=== PATIENT | female | born 1990 | race Caucasian/White ===

== ENCOUNTER 2018-04-23 08:51 | Emergency (ER) | payer OTHER ==
[~2018-04-23] VITALS: Ht 157.5 cm; Wt 82.0 kg
[~2018-04-23 08:51] MED LIST: CAMILA0.35 MG PO; Concerta PO; IBUPROFEN800 MG PO; MOTRIN800 MG PO; Motrin PO; PERCOCET 5/31 TABLET PO; PRENATAL TABLE1 EAC3 PO; Percocet 5/325,Endoc PO; ZOFRAN4 MG PO; celeXA PO
[2018-04-23] MEDS ORDERED: PREDNISONE20 MG PO (09:27)
[2018-04-23] MEDS ORDERED: ATARAX,VISTARIL25 MG PO (09:35)
[2018-04-23 09:44] VITALS: BP 108/76
[2018-04-24] MEDS ORDERED: LATUDA40 MG PO (02:25)
[2018-04-24] MEDS ORDERED: MEDROL DOSEPAK4 MG PO (10:43)
[2018-04-24] MEDS ORDERED: PEPCID20 MG PO (10:44)
[2018-04-24] MEDS ORDERED: BENADRYL25 MG PO (10:44)
== END 2018-04-23 09:45 | disposition home or self-care (01) ==
LOC: EME 08:51
DX: L50.9 Urticaria, unspecified (principal); F32.9 Major depressive disorder, single episode, unspecified; F41.9 Anxiety disorder, unspecified; J45.909 Unspecified asthma, uncomplicated; F17.200 Nicotine dependence, unspecified, uncomplicated
CPT/HCPCS: 99281; 99284; J7512; Q0177

== ENCOUNTER 2018-04-23 22:50 | Observation (INO) | payer OTHER ==
[~2018-04-23] VITALS: Ht 157.5 cm; Wt 83.5 kg
[~2018-04-23 22:50] MED LIST changes: +ATARAX,VISTARIL25 MG PO; +PREDNISONE20 MG PO
[2018-04-24] MEDS ORDERED: LATUDA40 MG PO (02:25)
[2018-04-24 05:24] VITALS: BP 114/73
[2018-04-24 07:53] VITALS: BP 109/67
[2018-04-24 08:57] LABS: BASOPHIL (%) 0.1 % (0-1); EOSINOPHIL (%) 0 % (0-5); HEMATOCRIT 38.3 % (36.0-46.0); HEMOGLOBIN 12.6 G/DL (11.9-15.5); IMMATURE GRANULOCYTE (%) 0.6 % (0.0-0.7); LYMPHOCYTE (%) 8.2 % (15-42); LYMPHOCYTE COUNT 0.9 K/uL (1.0-2.8); MCH 28.5 PG (29.0-34.0); MCHC 32.9 G/DL (30.0-36.0); MCV 86.7 FL (83-99); MONOCYTE (%) 2.8 % (3-12); MONOCYTE COUNT 0.3 K/uL (0-0.8); NEUTROPHIL (%) 88.3 % (45-76); NEUTROPHIL COUNT 10.2 K/uL (1.8-6.4); PLATELET COUNT 253 K/uL (156-360); RBC DIS.WIDTH-CV 12.3 % (11.8-14.6); RBC DIS.WIDTH-SD 39.1 % (39-53); RED BLOOD COUNT 4.42 M/uL (3.80-5.20); WHITE BLOOD COUNT 11.5 K/uL (4.1-10.2)
[2018-04-24 09:23] LABS: CHLORIDE 109 MEQ/L (99-109); CREATININE 0.6 MG/DL (0.6-1.3); GFR ESTIMATE (CALCULATED) > 59 mL/min/; GLUCOSE 139 mg/dL (70-99); POTASSIUM 4.2 MEQ/L (3.7-5.4); SODIUM 141 MEQ/L (136-147); UREA NITROGEN (BUN) 8 mg/dL (9-23)
[2018-04-24] MEDS ORDERED: MEDROL DOSEPAK4 MG PO (10:43)
[2018-04-24] MEDS ORDERED: PEPCID20 MG PO (10:44)
[2018-04-24] MEDS ORDERED: BENADRYL25 MG PO (10:44)
[2018-04-24 11:27] VITALS: BP 116/59
== END 2018-04-24 13:30 | disposition home or self-care (01) ==
LOC: EME 22:50 → ENPENDDIS 04-24 → EDOF 04-24 04:13 → 4SOUTH 04-24 04:13 → ENRESERV 04-24 04:15 → 4SOUTH 04-24 05:15
PROVIDERS: Internal Medicine
DX: T78.3XXA Angioneurotic edema, initial encounter (principal); Z86.11 Personal history of tuberculosis; J45.909 Unspecified asthma, uncomplicated; F17.210 Nicotine dependence, cigarettes, uncomplicated
CPT/HCPCS: 71045; 80048; 85025; 99281; 99285; G0378; J1100; J1200; J2920; S0028